=== PATIENT | male | born 1985 | race Caucasian/White ===

== ENCOUNTER 2018-11-28 16:39 | Emergency (ER) | payer MEDICAID, MEDICARE ==
[~2018-11-28] VITALS: Ht 167.6 cm; Wt 75.0 kg
[2018-11-28 16:53] VITALS: BP 158/96
[2018-11-28] MEDS ORDERED: CEPHALEXIN 500 MG CAPSULE ONE (17:24)
[2018-11-28] MEDS ORDERED: CEPHALEXIN 500 MG CAPSULE PO ONE (17:30)
--- NOTE | 2018-11-28 17:34 | NUR ---
PT REFUSING OBS PERIOD AFTER ABX ADMIN DESPITE EDU. PT MADE AWARE OF S/S OF ABX RXN AND AGREES TO RETURN IF ANY OCCUR. DC EDUCATION PROVIDED, PT DEMONSTRATES UNDERSTANDING. PT AMBULATED STEADILY TO DC WITH RN.
== END 2018-11-28 17:36 | disposition home or self-care (01) ==
LOC: ED 17:27
DX: S90.412A Abrasion, left great toe, initial encounter (principal); L03.032 Cellulitis of left toe; F17.200 Nicotine dependence, unspecified, uncomplicated; X58.XXXA Exposure to other specified factors, initial encounter; Y93.89 Activity, other specified; Y92.009 Unspecified place in unspecified non-institutional (private) residence as the place of occurrence of the external cause; Y99.8 Other external cause status
CPT/HCPCS: 82962; 99283